=== PATIENT | male | born 1970 | race Caucasian/White ===

== ENCOUNTER 2020-08-28 08:02 | Observation (INO) | payer BC ==
[2020-08-28] MEDS ORDERED: NA CHLORIDE 0.9% 2,000 ML ONE (08:40)
[2020-08-28] MEDS ORDERED: ACETAMINOPHEN 500 MG TAB ONE (08:40)
[2020-08-28 08:56] LABS: Absolute Lymphocytes (CBC) 1.2 K/uL (0.7-4.9); Basophils % 0.2 % (0-1.3); Hematocrit 45.9 % (39.6-49.0); Lymphocytes % 11.4 % (15.3-44.8); MPV 8.2 fL (7.6-11.3); RBC Red Blood Cell Count 5.42 M/uL (4.33-5.43)
--- NOTE | 2020-08-28 09:05 | ER ---
Nurse's Notes [facility] Name: Gautam Oconnell Age: 50 yrs Sex: Male : 1970 Arrival Date: 08/28/2020 Time: 08:04 Bed 2 Private MD: Diagnosis: Cellulitis and acute lymphangitis of other parts of limb-left lower extremity;Fever, unspecified;Dyspnea;Acute embolism and thrombosis of deep veins of lower extremity-left;Pulmonary embolism-bilateral, left greater than right Presentation: 08/28 08:09 Chief complaint: Patient states: left lower leg redness and swelling that began aa5 approximately 1 week ago and got worse over the last 2 days. Pt states "it hurts behind my left knee now". Pt also reports SOB on exertion that began around the same time. Also reports nausea. 08:09 Coronavirus screen: fever, shortness of breath, Client presents with at least one sign aa5 or symptom that may indicate coronavirus-19. Standard/surgical mask placed on the client. Provider contacted for isolation considerations. Ebola Screen: Patient negative for fever greater than or equal to 101.5 degrees Fahrenheit, and additional compatible Ebola Virus Disease symptoms. Initial Sepsis Screen: Does the patient meet any 2 criteria? HR > 90 bpm. Does the patient have a suspected source of infection? Yes: Other: possible cellulitis. Risk Assessment: Do you want to hurt yourself or someone else? Patient reports no desire to harm self or others. Onset of symptoms was August 2020. 08:09 Acuity: ZORAN 3 aa5 08:09 Method Of Arrival: Wheelchair aa5 Triage Assessment: 08:11 Respiratory: the patient has mild shortness of breath. rb1 08:11 Respiratory: Reports shortness of breath at rest when talking for a couple of minutes, rb1 he reports getting short of breath Onset: The symptoms/episode began/occurred . Historical: - Allergies: 08:10 No Known Allergies; aa5 - PMHx: 08:10 Hypertension; aa5 - PSHx: 08:10 Appendectomy; Left knee replacement; R knee; thumb sx; aa5 - Immunization history:: Adult Immunizations unknown. - Social history:: Smoking status: Patient denies any tobacco usage or history of. Screenin:11 Abuse screen: Denies threats or abuse. Nutritional screening: No deficits noted. rb1 Tuberculosis screening: No symptoms or risk factors identified. Fall Risk None identified. Assessment: 08:11 General: Appears in no apparent distress. comfortable, Behavior is calm, cooperative, rb1 Denies fever, Pt. reports that he has not been running a fever at home because he is checked daily at work, so the fever started today. Pain: Complains of pain in left lower leg. Neuro: Level of Consciousness is awake, alert, obeys commands, Oriented to person, place, time, situation. Cardiovascular: Patient's skin is warm and dry. Rhythm is regular. Respiratory: Airway is patent Respiratory effort is even, unlabored, Respiratory pattern is regular, symmetrical. GI: No signs and/or symptoms were reported involving the gastrointestinal system. : No signs and/or symptoms were reported regarding the genitourinary system. Derm: Skin is red, Left lower leg. Musculoskeletal: Range of motion: intact in all extremities. 09:00 Reassessment: Patient appears in no apparent distress at this time. No changes from rb1 previously documented assessment. 09:50 Reassessment: Patient appears in no apparent distress at this time. Pt. went to CT. rb1 10:48 Reassessment: Dr. Alcaraz is at the pt. bedside. rb1 10:52 Reassessment: Dr. Alcaraz gave verbal order the pt does not need to be on bedrest, he rb1 can walk to the bathroom. 100% read back. 11:33 Reassessment: Patient appears in no apparent distress at this time. Patient and/or rb1 family updated on plan of care and expected duration. Pain level reassessed. Patient is alert, oriented x 3, equal unlabored respirations, skin warm/dry/pink. 11:41 Reassessment: Tried to call report, spoke with MANDY Knapp, he said that Regine was at rb1 lunch and she will call me back on my extension. 12:15 Reassessment: Called and gave report to MANDY Weiner. Information from the [facility] was given. rb1 All questions asked and answered. 12:44 Reassessment: Patient appears in no apparent distress at this time. Patient and/or rb1 family updated on plan of care and expected duration. Pain level reassessed. Patient is alert, oriented x 3, equal unlabored respirations, skin warm/dry/pink. Vital Signs: 08:09 BP 129 / 98; Pulse 95; Resp 18 S; Temp 100.1(O); Pulse Ox 97% on R/A; Weight 113.4 kg aa5 (R); Height 6 ft. 0 in. (182.88 cm) (R); Pain 9/10; 08:22 BP 128 / 98; Pulse 93; Resp 15; Temp 100.1; Pulse Ox 97% on R/A; Weight 113.4 kg; em1 Height 6 ft. 0 in. (182.88 cm); Pain 9/10; 09:15 BP 135 / 97; Pulse 82; Resp 17; Pulse Ox 97% ; rb1 10:25 BP 113 / 76; Pulse 69; Resp 23; Temp 98.7(O); Pulse Ox 95% ; rb1 11:30 BP 121 / 81; Pulse 67; Resp 26; Temp 98.7; Pulse Ox 98% ; rb1 12:21 BP 123 / 75; Pulse 68; Resp 25; Temp 98.7; Pulse Ox 98% ; rb1 08:22 Body Mass Index 33.91 (113.40 kg, 182.88 cm) em1 ED Course: 08:04 Patient arrived in ED. as 08:09 Arm band placed on Patient placed in an exam room, on a stretcher. aa5 08:10 Gualberto Dennis MD is Attending Physician. shara 08:11 Patient has correct armband on for positive identification. Bed in low position. Call rb1 light in reach. Side rails up X 1. Pulse ox on. NIBP on. 08:22 Triage completed. aa5 08:25 Yuliana Jacinto, RN is Primary Nurse. rb1 08:45 Inserted saline lock: 20 gauge in right antecubital area, using aseptic technique. rb1 Blood collected. 08:57 EKG done, by ED staff, reviewed by Gualberto Dennis MD. em1 08:58 XRAY Chest (1 view) In Process Unspecified. EDMS 09:04 Shayne Alcaraz MD is Hospitalizing Provider. shara 09:20 Inserted saline lock: 20 gauge in left antecubital area, using aseptic technique. rb1 09:46 US Extremity Venous W Compression Justen In Process Unspecified. EDMS 09:47 Ultrasound completed. Patient tolerated well. Notified ED Physician eli. sg3 10:00 CT Chest For PE Angio In Process Unspecified. EDMS 12:44 No provider procedures requiring assistance completed. Patient admitted, IV remains in rb1 place. Administered Medications: 08:41 Drug: Tylenol 1000 mg Route: PO; rb1 11:11 Follow up: Response: No adverse reaction; Temperature is decreased rb1 08:47 Drug: NS 0.9% 1000 ml Route: IV; Rate: 1 bolus; Site: right antecubital; rb1 11:10 Follow up: IV Status: Completed infusion rb1 09:10 Drug: Aspirin 162 mg Route: PO; rb1 09:40 Follow up: Response: No adverse reaction rb1 09:12 Drug: Lovenox 1 mg/kg Route: Sub-Q; Site: right lower abdomen; rb1 09:30 Follow up: Response: No adverse reaction rb1 09:12 Drug: Pepcid 20 mg Route: IVP; Site: right antecubital; rb1 09:30 Follow up: Response: No adverse reaction rb1 09:12 Drug: NS 0.9% 1000 ml Route: IV; Rate: 1 bolus; Site: right antecubital; rb1 11:10 Follow up: IV Status: Completed infusion rb1 09:20 Drug: Zosyn 3.375 grams Route: IVPB; Infused Over: 60 mins; Site: left antecubital; rb1 10:48 Follow up: Response: No adverse reaction; IV Status: Completed infusion rb1 11:05 Drug: vancoMYCIN 2 grams Route: IVPB; Rate: calculated rate; Site: left antecubital; rb1 12:46 Follow up: IV Status: Infusion continued upon admission rb1 11:11 Drug: NS 0.9% 1000 ml Route: IV; Rate: 125 ml/hr; Site: right antecubital; rb1 12:46 Follow up: IV Status: Infusion continued upon admission rb1 Outcome: 09:05 Decision to Hospitalize by Provider. shara 12:44 Admitted to Med/surg accompanied by tech, via wheelchair, room 216, with chart, Report rb1 called to MANDY Weiner 12:44 Condition: stable 12:44 Instructed on the need for admit. 12:47 Patient left the ED. rb1 Signatures: Dispatcher [employer] EDMS Gualberto Dennis MD MD cha Martinez, Harish Jackman em1 Jaylin Saxena, RN RN aa5 Yuliana Jacinto RN RN rb1 Laura Leon sg3 Corrections: (The following items were deleted from the chart) 08:58 08:45 Inserted saline lock: 20 gauge in left antecubital area, using aseptic technique. rb1 Blood collected. rb1 11:43 09:50 Reassessment: Pt. went to CT rb1 rb1
--- NOTE | 2020-08-28 09:06 | EDPHYS ---
Physician Documentation [facility] Name: Gautam Oconnell Age: 50 yrs Sex: Male : 1970 Arrival Date: 08/28/2020 Time: 08:04 Bed 2 Private MD: ED Physician Gualberto Dennis HPI: 08/28 08:53 This 50 yrs old Male presents to ER via Wheelchair with complaints of shara Shortness Of Breath, Leg Swelling. 08:53 The patient has shortness of breath at rest, with light activity. Onset: The shara symptoms/episode began/occurred 5 day(s) ago. The patient's shortness of breath is aggravated by light activity, talking, walking. Associated signs and symptoms: The patient has no apparent associated signs or symptoms. Severity of symptoms: At their worst the symptoms were mild moderate in the emergency department the symptoms are unchanged. Historical: - Allergies: 08:10 No Known Allergies; aa5 - PMHx: 08:10 Hypertension; aa5 - PSHx: 08:10 Appendectomy; Left knee replacement; R knee; thumb sx; aa5 - Immunization history:: Adult Immunizations unknown. - Social history:: Smoking status: Patient denies any tobacco usage or history of. ROS: 08:56 Eyes: Negative for injury, pain, redness, and discharge, ENT: Negative for injury, shara pain, and discharge, Neck: Negative for injury, pain, and swelling, Cardiovascular: Negative for chest pain, palpitations, and edema, Abdomen/GI: Negative for abdominal pain, nausea, vomiting, diarrhea, and constipation, Back: Negative for injury and pain, : Negative for injury, bleeding, discharge, and swelling, Neuro: Negative for headache, weakness, numbness, tingling, and seizure, Psych: Negative for depression, anxiety, suicide ideation, homicidal ideation, and hallucinations, Allergy/Immunology: Negative for hives, rash, and allergies, Endocrine: Negative for neck swelling, polydipsia, polyuria, polyphagia, and marked weight changes, Hematologic/Lymphatic: Negative for swollen nodes, abnormal bleeding, and unusual bruising. 08:56 Constitutional: Positive for chills, fatigue, fever, malaise. 08:56 Cardiovascular: Positive for palpitations. 08:56 Respiratory: Positive for shortness of breath, on exertion. 08:56 MS/extremity: Positive for decreased range of motion, erythema, pain, tenderness, warmth, of the lateral aspect of left calf, medial aspect of left calf and left hicks. Exam: 08:56 Constitutional: This is a well developed, well nourished patient who is awake, alert, shara and in no acute distress. Head/Face: Normocephalic, atraumatic. Eyes: Pupils equal round and reactive to light, extra-ocular motions intact. Lids and lashes normal. Conjunctiva and sclera are non-icteric and not injected. Cornea within normal limits. Periorbital areas with no swelling, redness, or edema. ENT: Nares patent. No nasal discharge, no septal abnormalities noted. Tympanic membranes are normal and external auditory canals are clear. Oropharynx with no redness, swelling, or masses, exudates, or evidence of obstruction, uvula midline. Mucous membranes moist. Neck: Trachea midline, no thyromegaly or masses palpated, and no cervical lymphadenopathy. Supple, full range of motion without nuchal rigidity, or vertebral point tenderness. No Meningismus. Chest/axilla: Normal chest wall appearance and motion. Nontender with no deformity. No lesions are appreciated. Cardiovascular: Regular rate and rhythm with a normal S1 and S2. No gallops, murmurs, or rubs. Normal PMI, no JVD. No pulse deficits. Respiratory: Lungs have equal breath sounds bilaterally, clear to auscultation and percussion. No rales, rhonchi or wheezes noted. No increased work of breathing, no retractions or nasal flaring. Abdomen/GI: Soft, non-tender, with normal bowel sounds. No distension or tympany. No guarding or rebound. No evidence of tenderness throughout. Back: No spinal tenderness. No costovertebral tenderness. Full range of motion. Neuro: Awake and alert, GCS 15, oriented to person, place, time, and situation. Cranial nerves II-XII grossly intact. Motor strength 5/5 in all extremities. Sensory grossly intact. Cerebellar exam normal. Normal gait. Psych: Awake, alert, with orientation to person, place and time. Behavior, mood, and affect are within normal limits. 08:56 Skin: cellulitis, that is moderate, on the lateral aspect of left calf, left calf, medial aspect of left calf and left hicks. 09:01 ECG was reviewed by the Attending Physician. [facility] Vital Signs: 08:09 BP 129 / 98; Pulse 95; Resp 18 S; Temp 100.1(O); Pulse Ox 97% on R/A; Weight 113.4 kg aa5 (R); Height 6 ft. 0 in. (182.88 cm) (R); Pain 9/10; 08:22 BP 128 / 98; Pulse 93; Resp 15; Temp 100.1; Pulse Ox 97% on R/A; Weight 113.4 kg; em1 Height 6 ft. 0 in. (182.88 cm); Pain 9/10; 09:15 BP 135 / 97; Pulse 82; Resp 17; Pulse Ox 97% ; rb1 10:25 BP 113 / 76; Pulse 69; Resp 23; Temp 98.7(O); Pulse Ox 95% ; rb1 11:30 BP 121 / 81; Pulse 67; Resp 26; Temp 98.7; Pulse Ox 98% ; rb1 12:21 BP 123 / 75; Pulse 68; Resp 25; Temp 98.7; Pulse Ox 98% ; rb1 08:22 Body Mass Index 33.91 (113.40 kg, 182.88 cm) em1 MDM: 08:10 Patient medically screened. shara 08:58 Differential diagnosis: bacterial infection, pneumonia UTI, pneumonia, pulmonary edema, shara Pulmonary Embolism Sepsis. Antibiotic administration: zosyn and vanco. Differential Diagnosis sepsis. The patient's [place] Deep Vein Thrombosis Score was calculated as follows: Suspected DVT (3 Pts) Total Score: 3-6 Pts - Mod Risk. The patient's pulmonary embolism risk score was calculated as follows: suspected deep vein thrombosis (3 Pts). Immunization status: Influenza vaccine:. Data reviewed: vital signs, nurses notes, lab test result(s), EKG, radiologic studies, CT scan, plain films. Data interpreted: panel monitor: rate is 93 beats/min, rhythm is regular, Pulse oximetry: on room air is 97 %. Test interpretation: by ED physician or midlevel provider: ECG, plain radiologic studies. Counseling: I had a detailed discussion with the patient and/or guardian regarding: the historical points, exam findings, and any diagnostic results supporting the discharge/admit diagnosis, lab results, radiology results, the need for further work-up and treatment in the hospital. 08/28 08:24 Order name: Basic Metabolic Panel; Complete Time: 10:25 [facility] 08/28 08:24 Order name: CBC with Diff; Complete Time: 10:25 [facility] 08/28 08:24 Order name: LFT's; Complete Time: 10:25 [facility] 08/28 08:24 Order name: Magnesium; Complete Time: 10:25 [facility] 08/28 08:24 Order name: NT PRO-BNP; Complete Time: 10:25 [facility] 08/28 08:24 Order name: Troponin (emerg Dept Use Only); Complete Time: 10:25 [facility] 08/28 08:24 Order name: XRAY Chest (1 view) [facility] 08/28 08:24 Order name: US Extremity Venous W Compression Justen; Complete Time: 10:25 [facility] 08/28 08:24 Order name: Blood Culture Adult (2) [facility] 08/28 08:24 Order name: Lactate; Complete Time: 10:25 [facility] 08/28 10:05 Order name: SARS-COV-2 RT PCR [facility] 08/28 12:12 Order name: Urine Dipstick--Ancillary (enter results) 08/28 12:26 Order name: Urine Dipstick-Ancillary [facility] 08/28 08:24 Order name: EKG; Complete Time: 08:25 [facility] 08/28 08:24 Order name: Cardiac monitoring; Complete Time: 08:27 [facility] 08/28 08:24 Order name: EKG - Nurse/Tech; Complete Time: 08:57 [facility] 08/28 08:24 Order name: IV Saline Lock; Complete Time: 08:57 [facility] 08/28 08:52 Order name: CT Chest For PE Angio; Complete Time: 10:25 [facility] 08/28 10:59 Order name: CONS Pharmacy Consult [facility] 08/28 10:59 Order name: Regular [facility] 08/28 08:24 Order name: Labs collected and sent; Complete Time: 08:57 [facility] 08/28 08:24 Order name: O2 Per Protocol; Complete Time: 08:27 [facility] 08/28 08:24 Order name: O2 Sat Monitoring; Complete Time: 08:27 [facility] 08/28 08:24 Order name: Urine Dipstick-Ancillary (obtain specimen); Complete Time: 12:13 shara EC:01 Rate is 84 beats/min. Rhythm is regular. QRS [place] is Normal. [place] interval is normal. QRS shara interval is normal. QT interval is normal. No Q waves. T waves are Normal. No ST changes noted. Clinical impression: NSR w/ Non-specific ST/T Changes and No evidence of ischemia. Interpreted by me. Reviewed by me. Administered Medications: 08:41 Drug: Tylenol 1000 mg Route: PO; rb1 11:11 Follow up: Response: No adverse reaction; Temperature is decreased rb1 08:47 Drug: NS 0.9% 1000 ml Route: IV; Rate: 1 bolus; Site: right antecubital; rb1 11:10 Follow up: IV Status: Completed infusion rb1 09:10 Drug: Aspirin 162 mg Route: PO; rb1 09:40 Follow up: Response: No adverse reaction rb1 09:12 Drug: Lovenox 1 mg/kg Route: Sub-Q; Site: right lower abdomen; rb1 09:30 Follow up: Response: No adverse reaction rb1 09:12 Drug: Pepcid 20 mg Route: IVP; Site: right antecubital; rb1 09:30 Follow up: Response: No adverse reaction rb1 09:12 Drug: NS 0.9% 1000 ml Route: IV; Rate: 1 bolus; Site: right antecubital; rb1 11:10 Follow up: IV Status: Completed infusion rb1 09:20 Drug: Zosyn 3.375 grams Route: IVPB; Infused Over: 60 mins; Site: left antecubital; rb1 10:48 Follow up: Response: No adverse reaction; IV Status: Completed infusion rb1 11:05 Drug: vancoMYCIN 2 grams Route: IVPB; Rate: calculated rate; Site: left antecubital; rb1 12:46 Follow up: IV Status: Infusion continued upon admission rb1 11:11 Drug: NS 0.9% 1000 ml Route: IV; Rate: 125 ml/hr; Site: right antecubital; rb1 12:46 Follow up: IV Status: Infusion continued upon admission rb1 Disposition: 08/28/20 09:05 Hospitalization ordered by Shayne Alcaraz for Inpatient Admission. Preliminary diagnosis are Cellulitis and acute lymphangitis of other parts of limb - left lower extremity, Fever, unspecified, Dyspnea, Acute embolism and thrombosis of deep veins of lower extremity - left, Pulmonary embolism - bilateral, left greater than right. - Bed requested for Telemetry/MedSurg (Inpatient). - Status is Inpatient Admission. rb1 - Condition is Fair. - Problem is new. - Symptoms have improved. Signatures: Dispatcher [employer] EDN[facility] Gualberto Dennis MD MD cha Calderon, Audri, RN RN aa5 Yuliana Jacinto, RN RN rb1 Que Boyd RN RN ja1 Kristal Conley Corrections: (The following items were deleted from the chart) 10:05 09:07 CORONAVIRUS+ ordered. [facility] 10:29 09:05 Hospitalization Ordered by Shayne Alcaraz MD for Inpatient Admission. [facility] Preliminary diagnosis is Cellulitis and acute lymphangitis of other parts of limb - left lower extremity; Fever, unspecified; Dyspnea. Bed requested for Telemetry/MedSurg (Inpatient). Status is Inpatient Admission. Condition is Fair. Problem is new. Symptoms have improved. shara 11:27 10:29 08/28/2020 09:05 Hospitalization Ordered by Shayne Alcaraz MD for Inpatient eb Admission. Preliminary diagnosis is Cellulitis and acute lymphangitis of other parts of limb - left lower extremity; Fever, unspecified; Dyspnea; Acute embolism and thrombosis of deep veins of lower extremity - left; Pulmonary embolism - bilateral, left greater than right. Bed requested for Telemetry/MedSurg (Inpatient). Status is Inpatient Admission. Condition is Fair. Problem is new. Symptoms have improved. [facility] 11:50 11:27 08/28/2020 09:05 Hospitalization Ordered by Shayne Alcaraz MD for Inpatient ja1 Admission. Preliminary diagnosis is Cellulitis and acute lymphangitis of other parts of limb - left lower extremity; Fever, unspecified; Dyspnea; Acute embolism and thrombosis of deep veins of lower extremity - left; Pulmonary embolism - bilateral, left greater than right. Bed requested for Telemetry/MedSurg (Inpatient). Status is Inpatient Admission. Condition is Fair. Problem is new. Symptoms have improved. eb 12:47 11:50 08/28/2020 09:05 Hospitalization Ordered by Shayne Alcaraz MD for Inpatient rb1 Admission. Preliminary diagnosis is Cellulitis and acute lymphangitis of other parts of limb - left lower extremity; Fever, unspecified; Dyspnea; Acute embolism and thrombosis of deep veins of lower extremity - left; Pulmonary embolism - bilateral, left greater than right. Bed requested for Telemetry/MedSurg (Inpatient). Status is Inpatient Admission. Condition is Fair. Problem is new. Symptoms have improved. ja1
[2020-08-28 09:16] LABS: ALT/SGPT 33 U/L (12-78); AST/SGOT 22 U/L (15-37); Albumin 3.5 g/dL (3.4-5.0); Alkaline Phosphatase 76 U/L (45-117); BUN Blood Urea Nitrogen 18 mg/dL (7-18); Bicarbonate 28 mmol/L (21-32); Bilirubin Direct 0.4 mg/dL (0-0.2); Bilirubin Total 1.3 mg/dL (0.2-1.0); Glucose Level 109 mg/dL (74-106); NT PRO-BNP 90 pg/mL (<125); Potassium 3.9 mmol/L (3.5-5.1); Protein, Total 7.9 g/dL (6.4-8.2); Sodium Level 141 mmol/L (136-145); Troponin (Emerg Dept Use Only) < 0.02 ng/mL (0.0-0.045)
[2020-08-28] MEDS ORDERED: FAMOTIDINE 20 MG/2 ML VIAL IV ONE (09:17)
[2020-08-28] MEDS ORDERED: PIPER/TAZO/NS 3.375gm 3.375 GM/100 ML BAG ONE (09:17)
[2020-08-28] MEDS ORDERED: ENOXAPARIN 100 MG/ML SYR SQ ONE (09:17)
[2020-08-28] MEDS ORDERED: ASPIRIN 81 MG CHEWABLE TABLET ONE (09:20)
[2020-08-28] MEDS ORDERED: NA CHLORIDE 0.9% 1,000 ML ONE (09:20)
[2020-08-28] MEDS ORDERED: VANCOMYCIN 2 GM in NA CHLORIDE 0.9% 500 ML IVPB ONE (10:00)
--- NOTE | 2020-08-28 10:18 | RAD REPORT ---
EXAM DESCRIPTION: US - Extrem Venous W Compress Justen - 08/28/2020 9:46 am CLINICAL HISTORY: Pain;Swelling Bilateral leg edema and swelling. COMPARISON: No comparisons TECHNIQUE: Real-time sonographic interrogation of the left and right lower extremity deep venous sys tems was performed. FINDINGS: Thrombus is present in the left femoral vein, popliteal vein and posterior tibial vein com patible with left-sided DVT. No right-sided DVT seen. IMPRESSION: Positive for left-sided DVT.
--- NOTE | 2020-08-28 10:20 | RAD REPORT ---
EXAM DESCRIPTION: CT - Chest For Pe Angio - 08/28/2020 10:00 am CLINICAL HISTORY: Chest pain. DYSPNEA COMPARISON: No comparisons TECHNIQUE: CT angiogram of the pulmonary arteries was performed with MIP. All CT scans are performed using dose optimization technique as appropriate and may include automated exposure control or mA/KV adjustment according to patient size. FINDINGS: Main, segment and subsegmental segmental level bilateral pulmonary thromboemboli are seen, slightly greater on the left. No acute aortic finding demonstrated. No RV strain pattern observed. The lungs are clear. No significant pericardial or pleural fluid. No concerning bony finding. IMPRESSION: Positive for moderate bilateral pulmonary embolism as detailed above, slightly greater o n the left. No acute lung findings.
--- NOTE | 2020-08-28 11:09 | P.HP ---
Certification for Inpatient Patient admitted to: Observation With expected LOS: <2 Midnights Practitioner: I am a practitioner with admitting privileges, knowledge of patient current condition, hospital course, and medical plan of care. Services: Services provided to patient in accordance with Admission requirements found in Title 42 Section 412.3 of the Code of Federal Regulations Patient History Date of Service: 08/28/20 Reason for admission: DVT and pulmonary embolism History of Present Illness: Patient is 50 years of age started complaining of swelling in his left leg on and developed shortness of breath he has pain and discomfort increase in his left leg when in's and was admitted with DVT and pulmonary embolism for prior history of thromboembolic disease no symptoms of collins virus the very active Allergies No Known Allergies Allergy (Unverified 03/27/12 13:25) - Past Medical/Surgical History -: Hypertension -: Left knee replacement appendectomy Review of Systems 10-point ROS is otherwise unremarkable Musculoskeletal: Other (S per HPI) Physical Examination - Vital Signs Temperature: 100.1 F Blood Pressure: 129/88 Pulse: 95 Respirations: 18 Pulse Ox (%): 97 - Physical Exam General: Alert, Oriented x3 HEENT: Atraumatic Neck: Supple Respiratory: Clear to auscultation bilaterally Cardiovascular: No edema, Regular rate/rhythm, Normal S1 S2 Gastrointestinal: Normal bowel sounds, Soft and benign Musculoskeletal: Other (Left leg is markedly swollen evidence of cellulitis) Neurological: Normal speech, Cranial nerves 3-12 intact - Studies Laboratory Data (last 24 hrs) 08/28/20 08:45: WBC 10.5, Hgb 15.6, Hct 45.9, Plt Count 148 L 08/28/20 08:45: Sodium 141, Potassium 3.9, BUN 18, Creatinine 1.01, Glucose 109 H, Magnesium 2.0, Total Bilirubin 1.3 H, AST 22, ALT 33, Alkaline Phosphatase 76 Assessment and Plan - Problems (Diagnosis) (1) Deep vein thrombosis (DVT) or pulmonary embolism associated with estrogen- containing hormonal contraception Current Visit: Yes Status: Acute Plan: Patient is 50 years of age admitted with acute DVT and pulmonary embolism he is hemodynamically stable vital signs all satisfactory saturation satisfactory plan to continue with Lovenox ray switch him over to p.o. 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
--- NOTE | 2020-08-28 11:53 | RAD REPORT ---
EXAM DESCRIPTION: RAD - Chest Single View - 08/28/2020 8:58 am CLINICAL HISTORY: DYSPNEA Chest pain. COMPARISON: No comparisons FINDINGS: Portable technique limits examination quality. The lungs are grossly clear. The heart is normal in size. No displaced fractures. IMPRESSION: No acute intrathoracic process suspected.
[2020-08-28 12:26] LABS: Urine Blood NEGATIVE (NEG); Urine Glucose NEGATIVE (NEG); Urine Protein NEGATIVE (NEG); Urine Specific Gravity 1.015 (1.005-1.030); Urine pH 6.5 (5.0-7.0)
[2020-08-28 13:27] VITALS: BMI 4881.9
[2020-08-28] MEDS ORDERED: ACETAMINOPHEN 500 MG TAB PO PRN (16:14)
[2020-08-28] MEDS: MORPHINE 2 MG/ML SYR IV PRN (16:24)
[2020-08-28] MEDS: Enoxaparin 120 MG/0.8 ML SYR SQ SCH (21:41)
[2020-08-28] MEDS ORDERED: MELATONIN 5 MG TABLET PO PRN (22:54)
[2020-08-29] MEDS ORDERED: VALSARTAN 160 MG TAB PO SCH (09:00)
[2020-08-29] MEDS: Enoxaparin 120 MG/0.8 ML SYR SQ SCH (09:09)
[2020-08-29] MEDS: MORPHINE 2 MG/ML SYR IV PRN (09:10)
--- NOTE | 2020-08-29 10:38 | P.DS ---
Discharge Date: 08/29/20 Disposition: ROUTINE DISCHARGE Discharge Condition: FAIR Reason for Admission: DVT and pulmonary embolism Brief History of Present Illness: Patient is 50 years of age started complaining of swelling in his left leg on and developed shortness of breath he has pain and discomfort increase in his left leg when in's and was admitted with DVT and pulmonary embolism for prior history of thromboembolic disease no symptoms of collins virus the very active Hospital Course: Spoke with Pulmonary, who was covering for the hospitalist team over the weekend. At this time the plan is to do a lifelong anticoagulation. Hypercoagulable workup is pending. Patient denies any hormone use. Patient will be on Xarelto Dosepak and take 20 mg daily after the initial starter dose is completed. If patient has worsening symptoms he is to return to the ER. He is to be off work for 1 week but he can do light duty around the house. He is stable for discharge home. Vital Signs/Physical Exam: Temp Pulse Resp BP Pulse Ox 98.5 F 72 72 H 125/78 125 08/29/20 08:00 08/29/20 09:09 08/29/20 09:10 08/29/20 09:09 08/29/20 09:10 General: Alert, In no apparent distress, Oriented x3 Laboratory Data at Discharge: WBC 10.5 K/uL (4.3-10.9) 08/28/20 08:45 Hgb 15.6 g/dL (13.6-17.9) 08/28/20 08:45 Hct 45.9 % (39.6-49.0) 08/28/20 08:45 Plt Count 148 K/uL (152-406) L 08/28/20 08:45 Sodium 141 mmol/L (136-145) 08/28/20 08:45 Potassium 3.9 mmol/L (3.5-5.1) 08/28/20 08:45 BUN 18 mg/dL (7-18) 08/28/20 08:45 Creatinine 1.01 mg/dL (0.55-1.3) 08/28/20 08:45 Glucose 109 mg/dL (74-106) H 08/28/20 08:45 Magnesium 2.0 mg/dL (1.8-2.4) 08/28/20 08:45 Total Bilirubin 1.3 mg/dL (0.2-1.0) H 08/28/20 08:45 AST 22 U/L (15-37) 08/28/20 08:45 ALT 33 U/L (12-78) 08/28/20 08:45 Alkaline Phosphatase 76 U/L (45-117) 08/28/20 08:45 Home Medications: Candesartan Cilexetil 32 mg PO DAILY 08/28/20 Rivaroxaban [Xarelto] 1 each PO DAILY #1 tab.ds.pk 08/28/20 New Medications: Rivaroxaban [Xarelto] 1 each PO DAILY #1 tab.ds.pk Patient Discharge Instructions: -Patient to stay on lifelong anticoagulation please make sure that the Xarelto pack is covered. OK TO DC IV AND DC HOME. FOLLOW-UP WITH PRIMARY CARE PROVIDER IN 1-2 WEEKS. FOLLOW-UP WITH PULMONARY IN 1-2 WEEKS. RETURN TO THE ER IF symptoms worsen. CALL or TEXT DR. POE AT [phone] IF ANY QUESTIONS REGARDING HOSPITAL STAY. PLEASE CALL THE FLOOR AT [phone] IF ANY MEDICATION OR NURSING QUESTIONS. Diet: Regular Activity: Ad roscoe Followup: Shayne Alcaraz MD [ACTIVE - CAN ADMIT] - Time spent managing pt's care (in minutes): 35
[2020-08-29 12:52] VITALS: BP 132/84; TEMP 98.4
[2020-08-29] MEDS ORDERED: HYDROCORTISONE SUC 100 MG INJ IV ONE (13:00)
--- NOTE | 2020-08-29 15:07 | ECHO ---
HEIGHT: 6 ft 0 in WEIGHT: 250 lb 0 oz DATE OF STUDY: 08/29/[address]: Shayne Alcaraz MD 2-DIMENSIONAL: YES M.MODE: YES DOPPLER: YES COLOR FLOW: YES TDS: NO PORTABLE: NO DEFINITY: NO BUBBLE STUDY: NO DIAGNOSIS: DEEP VEIN THROMBOSIS/ PULMONALRY EMBOLISM CARDIAC HISTORY: CATHERIZATION: NO SURGERY: NO PROSTHETIC VALVE: NO PACEMAKER: NO MEASUREMENTS (cm) DIASTOLIC (NORMALS) SYSTOLIC (NORMALS) IVSd 1.2 (0.6-1.2) LA Diam 3.5 (1.9-4.0) LVEF 58% LVIDd 4.8 (3.5-5.7) LVIDs 3.4 (2.0-3.5) %FS 31% LVPWd 1.3 (0.6-1.2) Ao Diam 4.2 (2.0-3.7) 2 DIMENSIONAL ASSESSMENT: RIGHT ATRIUM: NORMAL LEFT ATRIUM: NORMAL RIGHT VENTRICLE: NORMAL LEFT VENTRICLE: NORMAL TRICUSPID VALVE: MILD TRICUSPID REGURGITATION MITRAL VALVE: NORMAL PULMONIC VALVE: MILD PULMONARY INSUFFICIENCY AORTIC VALVE: MILD AORTIC INSUFFICIENCY PERICARDIAL EFFUSION: NONE AORTIC ROOT: NORMAL LEFT VENTRICULAR WALL MOTION: NORMAL. DOPPLER/COLOR FLOW: NORMAL. COMMENTS: NORMAL LEFT VENTRICULAR EJECTION FRACTION 55-60%. NORMAL WALL MOTION. NORMAL RIGHT VENTRICULAR FUNCTION. MILD TRICUSPID REGURGITATION, MILD PULMONARY INSUFFICIENCY, AORTIC INSUFFICIENCY. PULMONARY HYPERTENSION WITH RIGHT VENTRICULAR SYSTOLIC PRESSURE 38mmHg + RIGHT ATRIAL PRESSURE. TECHNOLOGIST: CHERYL MARINELLI
[2020-08-29 15:37] VITALS: O2SAT 95
--- NOTE | 2020-08-29 16:53 | P.PN ---
Subjective Date of Service: 08/29/20 Chief Complaint: DVT and pulmonary embolism Subjective: Improving (c/o pain in the left leg. SOB has improved) Review of Systems Unremarkable Physical Examination - Vital Signs Temperature: 98.4 F Blood Pressure: 132/84 Pulse: 69 Respirations: 19 Pulse Ox (%): 95 - Physical Exam General: Alert, Oriented x3 Respiratory: Clear to auscultation bilaterally Cardiovascular: Normal S1 S2, Edema (Edema of left leg) Assessment And Plan - Current Problems (Diagnosis) (1) Pulmonary embolism Status: Acute Plan: PT AW DVT and PE. Doign better. Agree with Xarelto. Stocking. Stay off work for 1 wk. Lifelong anticoagulation .Dw pt and Qualifiers: Acute cor pulmonale presence: without acute cor pulmonale Discharge Plan: Home
[2020-08-30] MEDS ORDERED: CANDESARTAN CILEXETIL 32 MG PO SCH (09:00)
[2020-08-31 13:49] LABS: Protein C Antigen 79 % (70-140)
--- OUTSIDE RECORDS SUMMARY | 2020-09-01 00:25 | XMS REPORT | Clinical Summary ---
:1970 Author Organization [facility] Address [address] [place] [address] Care Team Providers Name Role Phone Quinten Shannon MD Primary Care Provider Allergies No Known Active Allergies Medications Medication Sig Dispensed Refills Start Date End Date Status methocarbamol Take 1 90 tablet 0 03/25/2017 Activ e (ROBAXIN) 750 MG tablet (750 tablet mg total) by mouth 3 (three) times a day. meloxicam (MOBIC) Take 1 30 tablet 2 10/24/2017 A ctive 15 mg tablet tablet (15 mg total) by mouth daily. candesartan Take 32 mg 0 Active (ATACAND) 32 MG by mouth tablet daily. meloxicam (MOBIC) TAKE 1 30 tablet 2 11/04/2019 A ctive 15 mg tablet TABLET (15 0 MG TOTAL) BY MOUTH DAILY. START THE MOBIC AFTER YOU FINISH THE MEDROL DOSE RAGHU meloxicam (MOBIC) TAKE 1 30 tablet 2 08/03/2019 D iscontinued 15 mg tablet TABLET (15 9 (Reord er) MG TOTAL) BY MOUTH DAILY. START THE MOBIC AFTER YOU FINISH THE MEDROL DOSE RAGHU Active Problems Not on file Encounters Date Type Specialty Care Team Description 11/04/2019 Refill Orthopedic Surgery Edd Lester MD after 08/31/2019 Surgical History Surgery Date Site/Laterality Comments THUMB ARTHROSCOPY KNEE SURGERY ORTHOPEDIC SURGERY 03/20/2017 Left knee,TKA MANIPULATION, JOINT, KNEE, 11/11/2017 Knee/Left Proce dure: LEFT MANIPULATION WITHOUT INJECTION OF THE KNEE UN CESAR GENERAL ANESTHESIA ; Huerta rgeon: Edd Lester MD; Loc ation: [facility] Main OR; Servic e: Orthopedics; La terality: Left; Medical History Medical History Date Comments Hypertension Family History Medical History Relation Name Comments Diabetes Father Hypertension Father Hypertension Paternal Grandfather Relation Name Status Comments Father Mother Alive Paternal Grandfather Social History Tobacco Use Types Packs/Day Years Used Date Never Smoker Smokeless Tobacco: Never Used Alcohol Use Drinks/Week oz/Week Comments Yes Sex Assigned at Date Recorded Not on file Last Filed Vital Signs Not on file Plan of Treatment Health Maintenance Due Date Last Done Comments COLONOSCOPY SCREENING 2020 SHINGLES VACCINES (#1) 2020 INFLUENZA VACCINE 06/25/2020 Results Not on fileafter 08/31/2019 Advance Directives For more information, please contact: [phone] Type Date Recorded 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
[2020-09-03 18:37] LABS: Prothrombin Gene Analysis Test REPORT
== END 2020-08-29 13:15 | disposition home or self-care (01) ==
LOC: ER 08:02 → ERHOLD 10:57 → 2ND 12:20
PROVIDERS: ADMIT Internal Medicine Sleep Medicine; ATTEND Hospitalist
DX: I26.99 Other pulmonary embolism without acute cor pulmonale (principal); I82.412 Acute embolism and thrombosis of left femoral vein; I82.432 Acute embolism and thrombosis of left popliteal vein; I82.442 Acute embolism and thrombosis of left tibial vein; I10 Essential (primary) hypertension; Z96.652 Presence of left artificial knee joint; Z20.828 Contact with and (suspected) exposure to other viral communicable diseases
CPT/HCPCS: 96365; 96367; 96361; 93005; 93306; 87040 ×2; 85025; 80048; 36415; 83735; 80076; 83605; 81003; 84484; 81241; 81240; 85301; 83880; 85302; 85305; 85306; 71275; 71045; 93970; 96375; 96372; 99285; 96366; U0003; Q9967; J3370; J2543; J1650 ×3; J2270 ×2; J7040; J7030 ×2; J1720; G0378 ×3

== ENCOUNTER 2022-10-08 07:58 | Day surgery (SDC) | payer BC ==
[2022-10-05 10:24] LABS: Absolute Lymphocytes (CBC) 1.6 K/uL (0.7-4.9); Lymphocytes % 21.2 % (15.3-44.8); MCV 87.3 fL (80-100); MPV 7.4 fL (7.6-11.3)
[2022-10-05 10:37] LABS: Potassium 4.2 mmol/L (3.5-5.1)
--- NOTE | 2022-10-05 10:51 | RAD REPORT ---
EXAM DESCRIPTION: RAD - Chest Pa And Lat (2 Views) - 10/05/2022 10:26 am CLINICAL HISTORY: pre op for colonoscopy Chest pain. COMPARISON: <Comparisons> FINDINGS: The lungs are clear. The heart is normal in size. No displaced fractures. IMPRESSION: No acute or concerning finding suspected.
--- NOTE | 2022-10-05 15:54 | EKG ---
Test Date: 2022-10-05 Test Time: 10:04:53 [place]: CL MEASUREMENT RESULTS: Intervals: Rate: 67 VT: 188 QRSD: 110 QT: 400 QTc: 422 [place]: P: 69 VT: 188 QRS: 24 T: 41 INTERPRETIVE STATEMENTS: Normal sinus rhythm with sinus arrhythmia Normal ECG Compared to ECG 08/28/2020 08:35:26 No significant changes Electronically Signed On 10-05-22 15:54:20 BOBBIN SORTER by Luigi Lyon
[2022-10-08] MEDS ORDERED: Ringers Lactate 1,000 ML IV ONE (08:16)
[2022-10-08 08:56] VITALS: O2SAT 96
[2022-10-08] MEDS ORDERED: propofoL 200 MG/20 ML VIAL IV ONE (09:07)
--- NOTE | 2022-10-08 09:44 | ENDO RPT ---
[address], [address] COLONOSCOPY PROCEDURE REPORT EXAM DATE: 10/08/2022 PATIENT NAME: Gautam Oconnell MR #: [id number] BIRTHDATE: 1970 ATTENDING: Lit Onofre M.D. STATUS: outpatient THERAPEUTIC RADIOLOGIST: Beata Puentes RN and Yasemin Eugenioadin Jensen INDICATIONS: The patient is a 52 yr old Male here for a colonoscopy due to colon cancer screening PROCEDURE PERFORMED: Colonoscopy MEDICATIONS: Per Anesthesia. ESTIMATED BLOOD LOSS: None CONSENT: The patient understands the risks and benefits of the procedure and understands that these risks include, but are not limited to: sedation, allergic reaction, infection, perforation and/or bleeding. Alternative means of evaluation and treatment include, among others: physical exam, x-rays, and/or surgical intervention. The patient elects to proceed with this endoscopic procedure. DESCRIPTION OF PROCEDURE: During intra-op preparation period all mechanical medical equipment was checked for proper function. Hand hygiene and appropriate measures for infection prevention was taken. Procedure, possible complications, alternatives including, but not limited to possibility of bleeding, perforation, tear, infection, sepsis, need for surgery, need for blood transfusion, were explained to the patient. After the risks, benefits and alternatives of the procedure were thoroughly explained, Informed consent was verified, confirmed and timeout was successfully executed by the treatment team. The patient was placed in the left lateral position. A digital rectal exam was performed and revealed no abnormalities of the rectum. After appropriate level of anesthesia, the scope was passed. The [id number] ([id number]) endoscope was introduced through the anus and advanced to the cecum, which was identified by the ileocecal valve. The quality of the prep was good. The instrument was then slowly withdrawn as the colon was fully examined. Scope withdrawal time was 15 minutes. COLON FINDINGS: Mild diverticulosis was noted in the descending colon and sigmoid colon. Retroflexed views revealed no abnormalities. The scope was then completely withdrawn from the patient and the procedure terminated. ADVERSE EVENTS: There were no complications. IMPRESSIONS: Mild diverticulosis was noted in the descending colon and sigmoid colon RECOMMENDATIONS: 1. fiber rich diet 2. increase dietary water RECALL: Return in 10 year(s) for Colonoscopy. Lit Onofre M.D. eSigned: Lit Onofre M.D. 10/08/2022 9:44 AM cc: Lee Shannon M.D. CPT CODES: ICD9 CODES: PATIENT NAME: Gautam Oconnell MR#: [id number]
[2022-10-08 10:38] VITALS: TEMP 97.9
[2022-10-08 10:39] VITALS: BP 120/75
== END 2022-10-08 10:19 | disposition home or self-care (01) ==
LOC: OR 07:58
PROVIDERS: ATTEND Surgery
PROC: 0DJD8ZZ Inspection of Lower Intestinal Tract, Via Natural or Artificial Opening Endoscopic (ICD-10-PCS; principal; 2022-10-08 10:00)
DX: Z12.11 Encounter for screening for malignant neoplasm of colon (principal); K57.30 Diverticulosis of large intestine without perforation or abscess without bleeding
CPT/HCPCS: 93005; 85025; 80048; 36415; 71046; 45378; J2704; J7120